=== PATIENT | female | born 1995 | race Caucasian/White ===

== ENCOUNTER 2017-06-09 00:29 | Inpatient (IN) ==
[2017-06-09 01:57] LABS: Bilirubin,Urine Negative (Negative); Blood,Urine Moderate (Negative); Clarity,Urine Cloudy (Clear); Color,Urine Dark Yellow (Yellow); Glucose,Urine (UA) Normal (Normal); Ketones,Urine Negative (Negative); Leukocyte Esterase,Urine Large (Negative); Nitrite,Urine Negative (Negative); Protein,Urine 30 mg/dL (Neg-Trace); Specific Gravity,Urine 1.028 (1.010-1.025); Urobilinogen,Urine Normal (Normal)
[2017-06-09 01:59] LABS: Hyaline Casts,Urine None Seen per lpf (None-Few); Squamous Epithelial Cell,Urine Many per lpf (None-Few); WBC,Urine TNTC per hpf (0-3)
[2017-06-09 02:26] LABS: Amphetamine Screen,Urine Negative ng/mL (Cutoff=1000); Barbiturate Screen,Urine Negative ng/mL (Cutoff=200); Benzodiazepines Screen,Urine Negative ng/mL (Cutoff=200); Cannabinoid Screen,Urine Negative ng/mL (Cutoff = 50); Cocaine Screen,Urine Negative ng/mL (Cutoff= 300); Opiate Screen,Urine Negative ng/mL (Cutoff=300); Phencyclidine Screen,Urine Negative ng/mL (Cutoff=25)
--- NOTE | 2017-06-09 02:36 | OB/GYN Progress Note ---
Date of Encounter: 06/09/17 Time of Encounter: 01:45 - Assessment and Plan (1) with 39 completed weeks gestation Current Visit: Yes Status: Acute (2) Vaginal bleeding during , antepartum Current Visit: Yes Status: Acute Speculum exam demonstrates vaginal streaking, cervical softening Fern negative UA with moderate blood and large leukocyte esterase, negative nitrite (3) heart deceleration Current Visit: Yes Status: Acute (4) Family history of congenital hydrocephalus Current Visit: Yes Status: Acute Subjective - Subjective Principal diagnosis: Labor Evaluation Interval history: Ms. Lang is a 21 year old at 39 weeks and 5 days who presents to labor and delivery for vaginal bleeding and streaking, and "abdominal cramps" 2-3 times per hour. She reports good movements and unsure of leakage of fluids. The patient noticed blood streaking this AM that has continued throughout the day, and started to have contractions 2-3x per hour since afternoon. Last sexual intercourse was 3 days ago. She admits to back pain with contractions. She denies fever, chills, nausea, vomiting, headaches, vision changes, chest pain, shortness of breath, dysuria, diarrhea. Patient's has been complicated by FOB's father born with hydrocephaly and blindness, varicella negative. Blood type: O+ Varicella IgG: negative GBS: negative Hepatitis B antigen: NR HIV Antibody: NR T. Pallidum: negative Rubella IgG: positive Antepartum ROS: vaginal bleeding, movement normal, contractions Objective - Vital Signs Vital Signs: Intake and Output 06/08/17 06/08/17 06/09/17 15:59 23:59 07:59 Other: Weight 92.3 kg Patient Weight 06/09/17 23:59 Weight 92.3 kg - Exam FHR: auscultation normal, category 1 Auscultation: bilateral: normal Abdomen: Present: normal appearance, soft, gravid Uterus: Present: normal, tenderness, other (soft)
[2017-06-09 02:58] LABS: Bacteria,Urine Moderate per hpf (None-Few)
[2017-06-09 03:04] LABS: Renal Epithelial Cells,Urine Few per hpf (None-Few); Transitional Epi Cells,Urine Many per hpf (None-Few)
[2017-06-09] MEDS ORDERED: Ringers Solution, Lactated 1,000 ML ONE (06:43)
[2017-06-09] MEDS ORDERED: Ringers Solution, Lactated 1,000 ML IVC SCH (06:45)
[2017-06-09] MEDS ORDERED: *HR* Nalbuphine 20 MG/ML AMPUL IVP PRN (07:01)
[2017-06-09] MEDS ORDERED: Ondansetron 4 MG/2 ML VIAL IVP PRN (11:03)
--- NOTE | 2017-06-09 11:51 | OB/GYN History & Physical ---
Date of Encounter: 06/09/17 Time of Encounter: 11:48 Assessment and Plan (1) 39 weeks gestation of Current visit: Yes Status: Acute admitted for delivery for early stages of labor with cervical change. Jay catheter placed for labor augmentation History of Present Illness Chief complaint: Labor HPI: Ms. Lang is a 21 year old female at 39 weeks and 5 days who presents to labor and delivery for vaginal bleeding and streaking, and "abdominal cramps " 2-3 times per hour. She reports good movements and unsure of leakage of fluids. The patient noticed blood streaking this AM that has continued throughout the day, and started to have contractions 2-3x per hour since afternoon. Last sexual intercourse was 3 days ago. She admits to back pain with contractions. She denies fever, chills, nausea, vomiting, headaches, vision changes, chest pain, shortness of breath, dysuria, diarrhea. Patient's has been complicated by FOB's father born with hydrocephaly and blindness, varicella negative. Patient reports pain has increased she now has nausea and vomiting. Cervical exam progressed to 1.5/80/-1 will admit for delivery. Blood type: O+ Varicella IgG: negative GBS: negative Hepatitis B antigen: NR HIV Antibody: NR T. Pallidum: negative Rubella IgG: positive Past Med Surg Social Fam HX - Past Medical History Source: patient Medical history: no medical history Psychiatric history: no psych history - Past Surgical History Surgical History: no surgical history - Social History Smoking Status: Never smoker Smokeless Tobacco Status: No Alcohol use: none Drug use: none Occupational status: employed Current living situation: Home - Independent Activity Level: Independent ambulation - Family History Maternal Grandmother Hx Family Endocrine Disorder: Yes Obstetrical History - Pregnancies : 1 Para: 0 Term: 0 : 0 Ab's: 0 Livin Medications and Allergies Flintstones with Iron Tab Chew 1 tab PO DAILY 06/09/17 [History] 3 Allergy/AdvReac Type Severity Reaction Status Date / Time No Known Allergies Allergy Verified 06/09/17 00:56 Review of System OB - Constitutional Constitutional ROS IM: no chills, no fever(s), no headache(s) - Cardiovascular Cardiovascular: no chest pain, no lightheadedness, no palpitations, no syncope - Respiratory Respiratory: no cough - Gastrointestinal Gastrointestinal: nausea, vomiting, no diarrhea, no heartburn - Genitourinary Genitourinary: no dysuria, no flank pain, no urinary frequency, no urinary urgency, no vaginal discharge, no vaginal odor, no vaginal pruritis Exam - Constitutional Constitutional: well developed, well nourished, average body habitus - HEENT HEENT: Normocephaly, Mucus Membranes Moist - Neck Neck exam: full ROM, supple - Lungs Respiratory exam: CTAB - Cardiovascular Cardiovascular exam: RRR, +S1, +S2 - Abdomen Abdomen: Present: bowel sounds normal, gravid, non tender - Extremities Extremities exam: full ROM Deep Tendon Reflex Grade: 2+ Normal - Cervix Dilation: 1 (1.5) Effacement: 80 Station: -1 - Uterus Uterus exam: Present: normal size, normal contour - Anus/Rectum Anus/Rectum: Present: normal perianal skin - Comments Comments: FHR 135 bpm moderate amount of variability. Contractions 3-5 min apart Results Abnormal lab results Urine Clarity Cloudy (Clear) A 06/09/17 01:28 Ur Specific [place] 1.028 (1.010-1.025) H 06/09/17 01:28 Urine Protein 30 mg/dL (Neg-Trace) H 06/09/17 01:28 Urine Blood Moderate (Negative) H 06/09/17 01:28 Ur Leukocyte Esterase Large (Negative) H 06/09/17 01:28 Urine Microscopic RBC 5-15 per hpf (0-3) H 06/09/17 01:28 Urine Microscopic WBC TNTC per hpf (0-3) H 06/09/17 01:28 Ur Squamous Epith Cells Many per lpf (None-Few) H 06/09/17 01:28 Ur Transition Epith Cell Many per hpf (None-Few) H 06/09/17 01:28 Urine Bacteria Moderate per hpf (None-Few) H 06/09/17 01:28 All other labs normal. - VTE Reasons for not Prescribing Prophylaxis: Treatment not Indicated - Low risk for VTE
[2017-06-09] MEDS ORDERED: Oxytocin 20 units/ LR 1000 mL 20 UNIT/1,000 ML BAG IVC SCH (14:30)
[2017-06-09] MEDS ORDERED: EPHEDrine 50 MG/ML VIAL IVP PRN (14:40)
[2017-06-09] MEDS ORDERED: Ringers Solution, Lactated 500 ML IVC ONE (14:40)
[2017-06-09] MEDS ORDERED: Epidural Premix (fent/bupiv) 110 ML EP ONE ×2 (14:44→22:30)
[2017-06-09] MEDS ORDERED: Epidural Premix (fent/bupiv) 110 ML EP SCH (14:45)
[2017-06-09] MEDS ORDERED: *HR* Ropivacaine/PF 0.2% 20 ML VIAL ONE (14:46)
[2017-06-09] MEDS ORDERED: *HR* FentaNYL (PF) 100 MCG/2 ML VIAL ONE ×2 (14:46→22:03)
--- NOTE | 2017-06-09 15:00 | Anesthesia Evaluation PreOp ---
Date of Encounter: 06/09/17 Time of Encounter: 14:58 - Past History Planned Operation: [facility] Cardiac History: Denies any Significant Hx Pulmonary History: Denies Any Significant HX VP MEDICAL History: Denies Any Significant HX Other Medical History: Denies Any Significant HX Anesthesia History: No Prior Anesthetic Complications, Past Anesthesia Alcohol Use: none Drug use: none Medications and Allergies Flintstones with Iron Tab Chew 1 tab PO DAILY 06/09/17 [History] 3 Allergy/AdvReac Type Severity Reaction Status Date / Time No Known Allergies Allergy Verified 06/09/17 00:56 - Meds/Allergy Pre-op Review Medications Reviewed: Yes Allergies Reviewed: Yes Beta Blockers on Current Med List: No Anesthesia Exam Height: 5'1" Weight: 92kg NPO (# of Hours): 6 Pain Scale: 9 Pain Scale Used: Numeric (1 - 10) - HEENT Pupil (Motor): Pupils equal Mallampati: II Teeth: Normal Oral Opening: Greater than 3 - VP MEDICAL LOC: Oriented VP MEDICAL Motor: Normal RUE, Normal LUE, Normal RLE, Normal LLE, Normal Face VP MEDICAL Sensory: Normal: RUE, LUE, RLE, LLE, Face - Cardiac Rhythm: Regular Murmur: None JVD: No Carotid Bruit: No - Pulmonary Breath Sounds: bilateral Clear Respiratory Effort: Symmetrical Anesthesia Assess/Plan ASA Score: 2 Modified Leeann Scale for Level of Consciousness: Cooperative, oriented, and tranquil Anesthetic Plan: General (plan b), Regional (plan a) Autologous Blood: Yes Monitoring Plan: Standard Monitors Recovery Plan: PACU
[2017-06-09 15:05] LABS: Basophils % 0.2 %; Eosinophils # 0.3 K/mcL (0.0-0.6); Eosinophils % 2.2 %; Hematocrit 35.6 % (35.3-44.9); Hemoglobin 11.5 g/dL (11.5-15.4); Immature Granulocytes % 0.5 % (0-4); Lymphocytes % 16.9 %; Mean Corpuscular HGB Conc 32.3 g/dL (31.6-35.5); Mean Corpuscular Hemoglobin 28.3 pg (28.0-33.3); Mean Corpuscular Volume 87.5 fL (83.0-100.0); Mean Platelet Volume 10.8 fL (9.4-12.4); Monocytes % 8.4 %; Neutrophils # 8.3 K/mcL (1.6-8.9); Platelet Count 204 K/mcL (140-400); Red Blood Count 4.07 M/mcL (3.82-4.97); Red Cell Distribution Width 13.3 % (11.5-14.5); Segmented Neutrophils % 71.8 %
--- NOTE | 2017-06-09 15:33 | Anesthesia Procedures ---
Date of Encounter: 06/09/17 Time of Encounter: 15:31 Procedures: Anesthesia - Epidural/Spinal Patient ID/Chart reviewed: Yes Patient examined: Yes OB Eval: Gestational age: 39.5 OB Eval: : 1 OB Eval: Hx Para: 0 OB Eval: Dilated at (cm): 4 OB Eval: Contractions: Non-stressed pattern Consent Obtained: Yes Supplemental Oxygen: None/Room Air Site Prep: Aseptic Technique, Sterile prep and drape, Povidone-Iodine 1% Patient position: upright Local Anesthetic: Lidocaine 1% Amount of Local Anesthetic used: 3 Touhy Needle Gauge: 18 Touhy Needle Depth (cm): 8 Catheter Depth at Skin (cm): 15 Test Dose (1.5% Lido + Epi): Volume given (mls): 5 Test Dose Result: Negative Loading Dose: Other: 8ml 0.2% ropivacaine with 100mcg fentanyl Loading Dose Administered: Thru Catheter Infusion Med: 0.125% Bupivacaine w/ 2 mcg/ml Fentanyl Infusion Rate (mls/hr): 12 ([id number]) Catheter Secured in Place: Tegaderm, Tape Interspace Used: L3-L4 Loss of Resistance (SERGIO): Yes Blood: No CSF: No Paresthesia: No Procedure: pt tolerated procedure well. no complications. vss. fhr stable throughout procedure.
--- NOTE | 2017-06-09 16:29 | OB Labor Progress Note ---
Date of Encounter: 06/09/17 Time of Encounter: 16:26 Labor Progress Note - Cervix Cervix: 4/90/-1 - Heart Tones Heart Tones: 145 bpm moderate amount of variability prolonged decel noted. - [place]: 3-7 min apart - Interventions Interventions: SVE, AROM moderate amount of clear fluid. FSE and IUPC placed without difficulty. Patient tolerated well. - Plan Plan: Continue labor management. Dr. Devi notified.
[2017-06-09] MEDS ORDERED: Terbutaline 1 MG/ML VIAL SQ ONE (17:59)
[2017-06-09] MEDS ORDERED: Metoclopramide 10 MG/2 ML VIAL IVP PRN (20:04)
[2017-06-09] MEDS ORDERED: Lidocaine/EPI 1:200k 2% PF 20 ML VIAL ONE (22:03)
[2017-06-09] MEDS ORDERED: Bupivacaine-MPF 0.25% 10 ML VIAL ONE (22:03)
--- NOTE | 2017-06-09 22:14 | Anesthesia Progress Note ---
Date of Encounter: 06/09/17 Time of Encounter: 22:13 Anesthesia Note - Note Note: 06/09/17 22:13 called for increased pressure during contractions. epidural increased to 14ml/ hr. 2%lidocaine with epi 5ml and 0.25% bupivacaine 5ml plus 100mcg fentanyl given. vss. fhr stable.
[2017-06-10] MEDS ORDERED: Acetaminophen 325 MG TABLET PO ONE (02:11)
[2017-06-10] MEDS ORDERED: Terbutaline 1 MG/ML VIAL SQ ONE (03:04)
[2017-06-10] MEDS ORDERED: Lidocaine 1% 20 ML MDV INFILT ONE (03:08)
[2017-06-10] MEDS ORDERED: Chloroprocaine/PF 20 ML VIAL INFILT ONE (03:51)
[2017-06-10] MEDS ORDERED: EPHEDrine 50 MG/ML VIAL ONE (03:52)
[2017-06-10] MEDS ORDERED: Water for inj. (sterile) 10 ML IV ONE ×2 (03:53→04:33)
--- NOTE | 2017-06-10 04:04 | OB Labor Progress Note ---
Date of Encounter: 06/10/17 Time of Encounter: 04:00 Labor Progress Note - Subjective Subjective: Patient pushing with contractions for 45 min with no decent. tachycardia noted with maternal temp. Patient was given PO tylenol. - Cervix Cervix: 10/100/0 - Heart Tones Heart Tones: 190 bpm moderate variability - [place]: 1.5-2 min apart - Interventions Interventions: Discussed POC with patient. Notified Dr. Devi of FHR, failure to decent - Plan Plan: Plan for primary for failure to decent and tachycardia. Patient prepped for section. Dr. Dvei at bedside to sign consent. Patient denies any questions or concerns.
[2017-06-10] MEDS ORDERED: Ondansetron 4 MG/2 ML VIAL ONE (04:15)
[2017-06-10] MEDS ORDERED: *HR* OxyCODONE Immed Rel 5 MG TABLET PO PRN (04:21)
[2017-06-10] MEDS ORDERED: Naloxone 0.4 MG/ML INJ IVP PRN (04:21)
[2017-06-10] MEDS ORDERED: Albuterol 2.5 MG/3 ML NEBULIZER IH ONE (04:21)
[2017-06-10] MEDS ORDERED: *HR* Meperidine 25 MG/ML SYRINGE IVP PRN (04:21)
[2017-06-10] MEDS ORDERED: MORPHINE SUL Oral CONC 10 MG/0.5 ML ORAL.SYG SL PRN (04:21)
[2017-06-10] MEDS ORDERED: *HR* OxyCODONE/APAP 5/325 TABLET PO PRN ×3 (04:21→07:22)
[2017-06-10] MEDS ORDERED: Ondansetron 4 MG/2 ML VIAL IVP ONE (04:21)
[2017-06-10] MEDS ORDERED: Ringers Solution, Lactated 1,000 ML IVC SCH ×2 (04:30→07:22)
[2017-06-10] MEDS ORDERED: Ketorolac 30 MG/ML VIAL ONE (04:58)
--- NOTE | 2017-06-10 05:15 | OB/GYN Procedure Note ---
Section - Date of procedure: 06/10/17 Preop diagnosis: other (Intrauterine at 39-6/7 weeks, arrest of descent, tachycardia) Post-op diagnosis: same Procedure: primary low transverse Surgeon: Mark Devi Estimated blood loss (cc): 700 Was there an assistant facility manager present: No Body Stylist: Cory Hansen Anesthesia Type: Epidural section complications: none Disposition: L&D Recovery Room Specimens: Placenta, Cord gasses - Infant (s) Infant A Infant Delivery Date: 06/10/17 Infant Delivery Time: 04:24 Presentation: vertex Position: SOTERO Route of delivery: other ( section) Gender: Female Viability: Viable Pounds: 7 Ounces: 11 Gram Weight: 3.49 kg at 1 minute: 6 at 5 minutes: 8 Shoulder Dystocia: not encountered Specimens collected: cord blood Placenta: spontaneous Cord: 3 umbilical vessels - Narrative Narrative: Patient is a 21-year-old 1 para 0 at 39-6/7 weeks who presented to labor and delivery in labor. Patient is having significant discomfort with her contractions was decided due to her term going to keep her and have a baby. Patient received a Jay catheter which came out when she was 4 cm. Patient had episodes of prolonged bradycardia but with return to baseline. Return to try to get the Pitocin started should have decelerations patient did progress to complete with the patient started to push but she had such ineffective pushing was not moving the baby. Baby became tachycardic in the 180s patient started her on a temperature. Because of the nonreassuring tones and inability to push we decided section would be called. Procedure: Patient was taken to the operating room where epidural anesthesia was found be adequate. She was placed in the dorsal supine position with a leftward tilt and prepped and draped in usual fashion. Timeout was obtained. Pfannenstiel incision was made with a scalpel carried down to the underlying tissue to the fascia was identified. The fascia was nicked in the midline extended laterally with the Lewis scissors. The superior and inferior edges of the fascia grasped tented up and dissected off the rectus muscles. Rectus muscles were in midline parietal peritoneum was identified tented up and entered sharply. This was extended superiorly and inferiorly with Metzenbaum scissors. The bladder blade was inserted the vesicouterine peritoneum was identified tented up and entered sharply and extended laterally with the Metzenbaum scissors. The bladder flap was created digitally the lower uterine segment was incised with a scalpel extended laterally with digital menopause. The infant's head was disengaged from the pelvis brought up through the incision and the was fully delivered. The cord is clamped and cut and was handed off to waiting pediatric team cord gases were collected longer cord blood placenta was then delivered spontaneously. Uterus was exteriorized cleaned of all clots and debris. The lower uterine segment was closed using an 0 Vicryl in a running locking stitch by a 2 layer closure. Good hemostasis was noted patient was noted to have his hematoma under the bladder reflection. It was non-expanding no attempt was made to do anything with this at this time. The uterus was returned to the abdomen the gutters were cleaned of all clots and debris and copiously irrigated. The fascia was then closed using a #1 stratafix in a running stitch the skin was closed using a 4-0 Vicryl in a subcuticular manner. A PRIMEO dressing was applied and the procedure was terminated. All needles AND sponge counts were correct 3 patient did receive preoperative antibiotics. She will be taken to the recovery room for 2 hours and she will be taken to
[2017-06-10] MEDS ORDERED: Ringers Solution, Lactated 500 ML IVC ONE (05:34)
--- NOTE | 2017-06-10 06:27 | Anesthesia Evaluation Post Op ---
Date of Encounter: 06/10/17 Time of Encounter: 06:26 - Lungs Lungs: Clear Ascult./Percussion - Airway Airway: Non-obstructed - Cardiovascular Regular Rate, Baseline Rhythm - Mental Status Mental Status: Alert & Oriented, Answers Appropriately, Baseline Status - Pain Pain Scale: 3 Pain Scale used: Numeric (1 - 10) - Nausea Vomiting Nausea Vomiting: Not Present - Hydration Hydration: NPO, Jay catheter - Discharge PostOp Status: Transfer Patient to floor
[2017-06-10] MEDS ORDERED: Sennosides 8.6 MG TABLET PO PRN (07:22)
[2017-06-10] MEDS ORDERED: Oxytocin 20 units/ LR 1000 mL 20 UNIT/1,000 ML BAG IVC SCH ×2 (07:22)
[2017-06-10] MEDS ORDERED: Simethicone 80 MG TAB.CHEW PO PRN (07:22)
[2017-06-10] MEDS ORDERED: Ondansetron 4 MG/2 ML VIAL IVP PRN (07:22)
[2017-06-10] MEDS ORDERED: Metoclopramide 10 MG/2 ML VIAL IVP PRN (07:22)
[2017-06-10] MEDS ORDERED: *HR* OxyCODONE/APAP 10/325 TABLET PO PRN (07:22)
[2017-06-10] MEDS ORDERED: CeFAZolin Syringe 2,000MG/20 ML SYR IVPB SCH (08:00)
[2017-06-10] MEDS ORDERED: [UNRECOGNIZED DRUG - OTHER] PO SCH (09:00)
[2017-06-10] MEDS: Ibuprofen 600 MG TABLET PO PRN (20:50)
[2017-06-10] MEDS: Prenatal Vit/FA 1 EACH TABLET PO SCH (21:02)
[2017-06-10] MEDS: CeFAZolin Premix DUPLEX 2,000 MG/50 ML BAG IVPB SCH ×2 (21:07→21:26)
[2017-06-11 05:07] LABS: Basophils % 0.2 %; Eosinophils % 0.2 %; Hematocrit 30.2 % (35.3-44.9); Immature Granulocytes % 1.3 % (0-4); Lymphocytes # 1.2 K/mcL (0.6-4.6); Lymphocytes % 5.8 %; Mean Corpuscular HGB Conc 32.5 g/dL (31.6-35.5); Mean Corpuscular Hemoglobin 28.2 pg (28.0-33.3); Mean Corpuscular Volume 86.8 fL (83.0-100.0); Mean Platelet Volume 10.2 fL (9.4-12.4); Monocytes # 0.9 K/mcL (0.0-1.3); Monocytes % 4.5 %; Neutrophils # 18.4 K/mcL (1.6-8.9); Platelet Count 162 K/mcL (140-400); Red Blood Count 3.48 M/mcL (3.82-4.97); Red Cell Distribution Width 13.7 % (11.5-14.5)
[2017-06-11 05:09] LABS: Hemoglobin 9.8 g/dL (11.5-15.4)
[2017-06-11] MEDS: Prenatal Vit/FA 1 EACH TABLET PO SCH (08:59)
[2017-06-11] MEDS: Ibuprofen 600 MG TABLET PO PRN (09:58)
[2017-06-11] MEDS ORDERED: Ibuprofen 600 MG TABLET PO PRN (13:07)
--- NOTE | 2017-06-11 13:14 | OB/GYN Progress Note ---
Date of Encounter: 06/11/17 Time of Encounter: 13:12 - Assessment and Plan (1) 39 weeks gestation of Current Visit: Yes Status: Acute admitted for delivery for early stages of labor with cervical change. Jay catheter placed for labor augmentation (2) Status post primary low transverse section Current Visit: Yes Status: Acute Continue routine postop/ care possible discharge home tomorrow Subjective - Subjective Principal diagnosis: Postop day 1 primary c/s Interval history: Patient had primary c/s for tachycardia and failure to descent. Patient is meeting day 1 milestones. Patient cannot swallow pills will switch to liquid or SL. Patient reports: appetite normal, voiding normally, pain well controlled, ambulating normally [place]: doing well, bottle feeding Objective - Vital Signs Latest vital signs: Vital Signs Temp Pulse Resp BP Pulse Ox 06/11/17 07:50 98.1 F 99 12 100/68 98 06/10/17 19:15 98.1 F 106 16 106/66 99 06/10/17 13:30 98.2 F 90 16 92/65 97 Intake and Output 06/10/17 06/11/17 06/11/17 23:59 07:59 15:59 Output Total 300 / 300 1300 / 1300 Balance -300 / -300 -1300 / -1300 Output: Catheter 300 / 300 1300 / 1300 - Exam Lungs: bilateral: normal Chest: Normal S1, Normal S2 Extremities: Present: normal Abdomen: Present: normal appearance, soft Incision: Present: normal, dry, intact, dressed (medipore dressing) Fundal Height: 1 (U/1) - Labs Labs: Laboratory Results - last 24 hr 06/11/17 04:09 WBC 20.9 H D RBC 3.48 L Hgb 9.8 L D Hct 30.2 L MCV 86.8 MCH 28.2 MCHC 32.5 RDW 13.7 Plt Count 162 MPV 10.2 Immature Gran % 1.3 Seg Neutrophils % 88.0 Lymphocytes % 5.8 Monocytes % 4.5 Eosinophils % 0.2 Basophils % 0.2 Neutrophils # 18.4 H Lymphocytes # 1.2 Monocytes # 0.9 Eosinophils # 0.0 Basophils # 0.0
[2017-06-11] MEDS: OXYCODONE Oral CONC 10 MG/0.5 ML ORAL.SYG SL PRN ×2 (13:51→23:56)
[2017-06-12 08:08] VITALS: BP 112/75
[2017-06-12] MEDS: Prenatal Vit/FA 1 EACH TABLET PO SCH (08:36)
--- NOTE | 2017-06-12 10:59 | Discharge Summary ---
Date of Encounter: 06/12/17 Time of Encounter: 10:56 - Discharge Diagnosis (1) anemia Priority: Secondary Status: Acute Comments: Continue iron supplement BID (2) Status post primary low transverse section Priority: Primary Status: Acute Comments: Pain well controlled with PO meds Tolerating regular diet Voiding independently Passing flatus but no BM yet Lochia light VSS Discharge home today - Discharge Medications Prescriptions: Ibuprofen Susp [Motrin Susp] 600 mg PO Q6HR PRN #1 bottle PRN Reason: Moderate Pain OXYCODONE Oral CONC [Oxycodone Oral Conc] 5 mg SL Q6HR PRN 5 Days #100 oral.syg PRN Reason: Severe Pain Docusate [Colace] 100 mg PO BID #30 capsule Ferrous Sulfate 325 mg PO DAILY #60 tablet Home Medications: [place] with Iron Tab Chew 1 tab PO DAILY 06/09/17 [History] Docusate [Colace] 100 mg PO BID #30 capsule 06/12/17 [Rx] Ferrous Sulfate 325 mg PO DAILY #60 tablet 06/12/17 [Rx] Ibuprofen Susp [Motrin Susp] 600 mg PO Q6HR PRN #1 bottle 06/12/17 [Rx] OXYCODONE Oral CONC [Oxycodone Oral Conc] 5 mg SL Q6HR PRN 5 Days #100 oral.syg 06/12/17 [Rx] Simethicone [Gas-X] 80 mg PO TID PRN tab.chew 06/12/17 [Rx] Allergies/Adverse Reactions: 3 Allergy/AdvReac Type Severity Reaction Status Date / Time No Known Allergies Allergy Verified 06/09/17 00:56 Data Procedures and tests throughout hospitalization: Laboratory Tests 06/09/17 06/09/17 06/09/17 01:28 01:28 06:51 WBC 11.6 H RBC 4.07 Hgb 11.5 Hct 35.6 MCV 87.5 MCH 28.3 MCHC 32.3 RDW 13.3 Plt Count 204 MPV 10.8 Immature Gran % 0.5 Seg Neutrophils % 71.8 Lymphocytes % 16.9 Monocytes % 8.4 Eosinophils % 2.2 Basophils % 0.2 Neutrophils # 8.3 Lymphocytes # 2.0 Monocytes # 1.0 Eosinophils # 0.3 Basophils # 0.0 Urine Color Dark Yellow Urine Clarity Cloudy A Urine pH 6.0 Ur Specific [place] 1.028 H Urine Protein 30 H Urine Glucose (UA) Normal Urine Ketones Negative Urine Blood Moderate H Urine Nitrite Negative Urine Bilirubin Negative Urine Urobilinogen Normal Ur Leukocyte Esterase Large H Urine Microscopic RBC 5-15 H Urine Microscopic WBC TNTC H Ur Squamous Epith Cells Many H Ur Transition Epith Cell Many H Ur Renal Epithelial Cell Few Urine Bacteria Moderate H Hyaline Casts None Seen Ur Culture Indicated? NO. Urine Opiates Screen Negative Ur Barbiturates Screen Negative Ur Phencyclidine Scrn Negative Ur Amphetamines Screen Negative U Benzodiazepines Scrn Negative Urine Cocaine Screen Negative U Marijuana (THC) Screen Negative 06/11/17 04:09 WBC 20.9 H D RBC 3.48 L Hgb 9.8 L D Hct 30.2 L MCV 86.8 MCH 28.2 MCHC 32.5 RDW 13.7 Plt Count 162 MPV 10.2 Immature Gran % 1.3 Seg Neutrophils % 88.0 Lymphocytes % 5.8 Monocytes % 4.5 Eosinophils % 0.2 Basophils % 0.2 Neutrophils # 18.4 H Lymphocytes # 1.2 Monocytes # 0.9 Eosinophils # 0.0 Basophils # 0.0 Urine Color Urine Clarity Urine pH Ur Specific [place] Urine Protein Urine Glucose (UA) Urine Ketones Urine Blood Urine Nitrite Urine Bilirubin Urine Urobilinogen Ur Leukocyte Esterase Urine Microscopic RBC Urine Microscopic WBC Ur Squamous Epith Cells Ur Transition Epith Cell Ur Renal Epithelial Cell Urine Bacteria Hyaline Casts Ur Culture Indicated? Urine Opiates Screen Ur Barbiturates Screen Ur Phencyclidine Scrn Ur Amphetamines Screen U Benzodiazepines Scrn Urine Cocaine Screen U Marijuana (THC) Screen Date of admission: 06/09/17 00:29 Primary care physician: María Clay CNP Discharging clinician: Kamala Elaine Anticipated date of discharge: 06/12/17 - Patient Status Disposition: Home, Self-Care Condition: Good Functional capacity at discharge: independent ambulation Overall status at discharge: patient is progressing back to baseline - Discharge Instructions Follow Up With: María Clay CNP [Primary Care Provider] - Mark Devi DO [Partnered Physician] - Additional Instructions: LABOR AND DELIVERY DISCHARGE INSTRUCTIONS Signs and Symptoms to be Reported to your Doctor Immediately: * Sudden gush, continuous or intermittent lead of fluid from vagina (note the time of gush and color of fluid) * Onset of bright red vaginal bleeding with or without pain (if you had a vaginal exam during this visit you may notice some dark red spotting. This is normal.) * Contractions that are 5 minutes apart (from the beginning of one contraction to the beginning of the next) and last 45-60 seonds; contractions that you can no longer walk, talk or laugh through. * A change in the baby's activity. This could be an increase or decrease in activity. * Severe headache which does not go away with tylenol. * Sudden swelling in the face, hands, arms and/or legs. * Upper abdominal pain - sometimes associated with heartburn or nausea and is not relieved by Maalox, Mylanta or Tums. * Kick Counts __ One hour after a meal, lay down on one side in a quiet place. Count the number of time the baby moves during an hour. If less than 6 movements, notify your physician Diet: *Force fluids, 8 to 10 tall glasses of fluid per day - may include popsicles and jello *Limit caffeine - this includes chocolate, coffee, tea, any soft drink containing such as all jose, Shashank Yellow and Mountain Dew - Diet and Activity Activity: increase activity as tolerated Diet: regular diet Hospital Course Reason for admission: IUP at term Delivery: section Episiotomy: none Laceration: none Other procedures: none complications: none Discharge diagnosis: IUP at term delivered baby: female Time Attestation: Total time spent providing and/or coordinating discharge services: Time Spent: Less than 30 minutes - VTE Reasons for not Prescribing Prophylaxis: Treatment not Indicated - Low risk for VTE Documentation of Mechanical Device: Intermittent pneumatic compression device Exam - Constitutional Vitals: Temp Pulse Resp BP Pulse Ox 97.9 F 75 18 112/75 98 06/12/17 08:06 06/12/17 08:06 06/12/17 08:06 06/12/17 08:06 06/12/17 08:06 General appearance IM: A&O X 3 - Respiratory Respiratory exam: Present: CTAB - Cardiovascular Cardiovascular exam IM: Present: RRR, +S1, +S2 - GI/Abdominal GI/Abdominal exam IM: normal bowel sounds Incision: normal, intact - Rectal Rectal exam: deferred - Uterine Tone: Firm Uterus Position: At Umbilicus, Midline - Extremities Exam Extremities exam IM: Present: radial pulses palpable and symmetrical - Neurological Exam Neurological exam: oriented X3 - Psychiatric Additional comments: Pt feeling mentally well. S/sx of PPD discussed with pt and family.
== END 2017-06-12 12:50 | disposition home or self-care (01) | DRG 540 ==
LOC: 1NENULAB → OBSVTOIN 00:29 → 1NENUOBS 06-10 07:21
PROVIDERS: ADMIT Advanced Practice Midwife; ATTEND Advanced Practice Midwife